=== PATIENT | female | born 1995 | race Caucasian/White ===

== ENCOUNTER 2024-09-16 12:13 | Observation (INO) | payer OTHER, SELFPAY ==
[2024-09-16 13:01] LABS: Urine Albumin Negative (Neg - Trace); Urine Bilirubin Negative (Negative); Urine Character Clear (Clear); Urine Color Yellow; Urine Glucose Negative (Negative); Urine Ketone Negative (Negative); Urine Leukocyte Negative (Negative); Urine Nitrite Negative (Negative); Urine Occult Blood 1+ (Negative); Urine Specific Gravity 1.015 (<1.030); Urine Urobilinogen Negative (Neg - 1+); Urine pH 6.5 (5.0-9.0)
[2024-09-16 13:20] VITALS: BP 158/72; BMI 28.4
[2024-09-16 13:24] LABS: Urine Bacteria Few (Negative); Urine Red Blood Cell 0-2 /HPF (0-2); Urine White Cell 0-2 /HPF (0-5)
[2024-09-16 13:24] LABS: Protein/creatinine Ratio 0.2; Urine Protein 11 mg/dl
[2024-09-16 13:30] LABS: ALT (SGPT) 13 U/L (0-35); AST (SGOT) 23 U/L (14-36); Albumin 3.6 g/dl (3.5-5.0); Alkaline Phosphatase 152 U/L (38-126); Blood Urea Nitrogen 9 mg/dl (7-17); Calcium 9.3 mg/dl (8.4-10.2); Carbon Dioxide 21 mmol/L (22-30); Chloride 108 mmol/L (98-107); Estimated Creatinine Clearance > 125 ml/min; Glucose 101 mg/dl (70-99); Sodium 138 mmol/L (135-145); Total Bilirubin 0.5 mg/dl (0.2-1.3); Total Protein 5.9 g/dl (6.3-8.2); eGFR > 60.00
[2024-09-16 13:31] LABS: % Basophils 0.5 % (0-2); % Eosinophils 1.3 % (0-6); % Immature Granulocytes 1.8 % (0-0.5); % Lymphocytes 15.5 % (20.5-51.1); % Monocytes 5.4 % (1.7-9.3); % Neutrophils 75.5 % (42.2-75.2); Absolute Basophils 0.1 10^3/uL (0-0.2); Absolute Eosinophils 0.1 10^3/uL (0-0.7); Absolute Immature Granulocytes 0.2 10^3/uL (0-0.05); Absolute Lymphocytes 1.6 10^3/uL (1.2-3.4); Absolute Monocytes 0.6 10^3/uL (0.1-0.6); Absolute Neutrophils 7.8 10^3/uL (1.4-6.5); Hematocrit 38.1 % (37.0-47.0); Mean Corp Hgb Conc. 34.1 g/dL (33.0-37.0); Mean Corpuscular Hgb 27.5 pg (27.0-31.0); Mean Corpuscular Volume 80.5 fL (81.0-99.0); Mean Platelet Volume 10.7 fL (7.4-10.4); Nucleated Red Blood Cells % 0 %; Platelet Count 169 10^3/uL (130-400); Red Blood Cell Count 4.73 10^6/uL (4.20-5.40); Red Cell Dist. Width 13.5 % (11.5-14.5); White Blood Cell Count 10.4 10^3/uL (4.8-10.8)
== END 2024-09-16 14:35 | disposition home or self-care (01) ==
LOC: PNTC-IN 12:13
PROVIDERS: ADMITTING PHYSICIAN Obstetrics & Gynecology
DX: O13.3 Gestational [pregnancy-induced] hypertension without significant proteinuria, third trimester (principal); R22.41 Localized swelling, mass and lump, right lower limb
CPT/HCPCS: 76815; 80053; 81003; 81015; 82570; 84156; 85025; G0378

== ENCOUNTER 2024-09-22 04:16 | Inpatient (IN) | payer OTHER, SELFPAY ==
[2024-09-22 04:24] VITALS: BMI 28.5
[2024-09-22 04:27] VITALS: BP 125/85
[2024-09-22 05:08] LABS: % Basophils 0.4 % (0-2); % Eosinophils 0.9 % (0-6); % Immature Granulocytes 1.2 % (0-0.5); % Monocytes 5.5 % (1.7-9.3); Absolute Basophils 0.1 10^3/uL (0-0.2); Absolute Eosinophils 0.1 10^3/uL (0-0.7); Absolute Immature Granulocytes 0.1 10^3/uL (0-0.05); Absolute Lymphocytes 1.7 10^3/uL (1.2-3.4); Absolute Monocytes 0.6 10^3/uL (0.1-0.6); Absolute Neutrophils 8.9 10^3/uL (1.4-6.5); Hemoglobin 13.2 g/dL (12.0-16.0); Mean Corp Hgb Conc. 34.7 g/dL (33.0-37.0); Mean Corpuscular Hgb 27.8 pg (27.0-31.0); Mean Platelet Volume 10.4 fL (7.4-10.4); Nucleated Red Blood Cells % 0 %; Platelet Count 161 10^3/uL (130-400); Red Blood Cell Count 4.75 10^6/uL (4.20-5.40); Red Cell Dist. Width 13.5 % (11.5-14.5); White Blood Cell Count 11.6 10^3/uL (4.8-10.8)
[2024-09-22] MEDS: LR 1000 IV (10:30)
[2024-09-22] MEDS: SUBLIMAZE 100 MCG EPIDURAL (10:52)
[2024-09-22] MEDS: FENTANYL/BUPIVACAINE 100 EPIDURAL (10:52)
[2024-09-22] MEDS: PITOCIN 30 UNITS/NSS 500 ML IV (12:12)
[2024-09-22] MEDS: MOTRIN 600 MG PO (15:50)
[2024-09-22] MEDS: SENOKOT-S 1 TABLET PO (15:50)
[2024-09-23] MEDS: MOTRIN 600 MG PO ×2 (02:56→18:49)
[2024-09-23 05:35] LABS: Hematocrit 37.3 % (37.0-47.0); Hemoglobin 12.7 g/dL (12.0-16.0)
[2024-09-23] MEDS: PRENATAL PLUS 1 TABLET PO (07:36)
[2024-09-23] MEDS: SENOKOT-S 1 TABLET PO (15:17)
[2024-09-23] MEDS: TYLENOL 650 MG PO (19:05)
[2024-09-24] MEDS: MOTRIN 600 MG PO (06:13)
[2024-09-24] MEDS: PRENATAL PLUS PO (09:40)
[2024-09-24 11:53] LABS: Syphilis/T. pallidum Ab Reflex Negative (Negative)
== END 2024-09-24 10:39 | disposition home or self-care (01) | DRG 806 ==
LOC: LDRP 04:16
PROVIDERS: ADMITTING PHYSICIAN Obstetrics & Gynecology; ATTENDING PHYSICIAN Obstetrics & Gynecology
PROC: 10E0XZZ Delivery of Products of Conception, External Approach (ICD-10-PCS; 2024-09-22)
PROC: 0UQMXZZ Repair Vulva, External Approach (ICD-10-PCS; 2024-09-22)
DX: O48.0 Post-term pregnancy (principal); O98.32 Other infections with a predominantly sexual mode of transmission complicating childbirth; Z37.0 Single live birth; Z3A.40 40 weeks gestation of pregnancy; O71.82 Other specified trauma to perineum and vulva; A60.09 Herpesviral infection of other urogenital tract
CPT/HCPCS: 36415; 85014; 85018; 85025; 86780; 86850; 86900; 86901